=== PATIENT | male | born 1970 ===

== ENCOUNTER 2018-03-17 07:10 | Day surgery (SDC) | payer OTHER ==
[~2018-03-17] VITALS: Ht 157.5 cm; Wt 67.1 kg
[2018-03-17] VITALS (14 sets, daily range): BP systolic 97–124; BP diastolic 64–84
[~2018-03-17 07:10] MED LIST: CALCIUM600 M1 PO; ceFAZolin 1gm in D5W 55ml IVPB ONE; celeBREX 200mg Cap **SURGERY PATIENTS ONLY ORAL ONE; oxyCONTIN 20mg tab ORAL ONE
[2018-03-17] MEDS ORDERED: Lidocaine 1% MPF 10mg/ml 5ml ONE (09:04)
[2018-03-17] MEDS ORDERED: Ropivacaine 5mg/ml Vial 30ml INJ ONE (09:04)
[2018-03-17] MEDS ORDERED: fentaNYL 100 mcg/2 mL IV ONE (09:11)
[2018-03-17] MEDS ORDERED: Midazolam 2mg/2ml Inj ONE (09:11)
[2018-03-17] MEDS ORDERED: Propofol 200mg/20ml IV ONE (09:14)
[2018-03-17] MEDS ORDERED: EPINEPHrine 1mg/1ml Amp ONE (09:49)
[2018-03-17] MEDS ORDERED: Bupivacaine 0.25% Inj 30ml INJ ONE (09:49)
[2018-03-17] MEDS ORDERED: NS Irrig 4000ml IRRIG ONE ×2 (10:00→10:58)
[2018-03-17] MEDS ORDERED: LR 1000ml ONE (10:00)
[2018-03-17] MEDS ORDERED: Glycopyrrolate 0.2mg/ml 1ml Vial ONE (10:42)
[2018-03-17] MEDS ORDERED: Ketorolac 30mg Inj ONE (10:42)
[2018-03-17] MEDS ORDERED: LR 1000ml 1,000 ML IVLG SCH (10:57)
--- NOTE | 2018-03-17 10:57 | Anethesia Preoperative Eval ---
Anesthesia Pre-op PMH/ROS General Date of Evaluation: Mar 17, 2018 Time of Evaluation: 09:52 Anesthesiologist: Lona ASA Score: ASA 2 Mallampati Score Class I : Soft palate, uvula, fauces, pillars visible Class II: Soft palate, uvula, fauces visible Class III: Soft palate, base of uvula visible Class IV: Only hard plate visible Mallampati Classification: Class II Surgeon: Jluis Diagnosis: R shoulder pain Surgical Procedure: R shoulder scope Anesthesia History: none Family History: no anesthesia problems Allergies: Coded Allergies: No Known Allergies (Unverified , 01/03/18) Medications: see eMAR Past Medical History Cardiovascular: Denies: HTN, CAD, ID, valve dz, arrhythmia, other Pulmonary: Denies: asthma, COPD, GER[place], other Gastrointestinal/Genitourinary: Reports: GERD; Denies: CRI, ESRD, other Neurologic/Psychiatric: Denies: dementia, CVA, depression/anxiety, TIA, other Endocrine: Denies: DM, hypothyroidism, steroids, other HEENT: Denies: cataract (L), cataract (R), glaucoma, [place] (L), [place] (R), other Hematology/Immune: Denies: anemia, DVT, bleeding disorder, other Musculoskeletal/Integumentary: Denies: OA, RA, DJD, DDD, edema, other PMH Narrative: as above PSxH Narrative: Bilateral knees scope Anesthesia Pre-op Phys. Exam Physician Exam Last Vital Signs Date Time Temp Pulse Resp B/P (MAP) Pulse Ox O2 Delivery O2 Flow Rate FiO2 03/17/18 07:51 97.3 77 18 112/82 (92) 97 97.3 03/17/18 07:41 Room Air Constitutional: NAD Neurologic: CN 2-12 intact Cardiovascular: RRR, no M/R/G Respiratory: CTA Gastrointestinal: S/NT/ND Airway Exam Mallampati Score: Class II MO: full Neck: flexible ROM: full Teeth: intact Dentures: no upper, no lower Anesthesia Pre-op A/P Labs see chart Studies Pre-op Studies: EKG - NSR Risk Assessment & Plan Assessment: ASA 2 Plan: GA with LMA brachial plexus block for p/op pain control Status Change Before Surgery: No Pre-Antibiotics Drug: Ancef 1gr. Given Within 1 Hr of Incision: Yes Time Given: 10:28 Romeo Wolff MD Mar 17, 2018 10:57
[2018-03-17] MEDS ORDERED: Ketorolac 30mg Inj IV PRN (11:00)
[2018-03-17] MEDS ORDERED: Metoclopramide 10mg/2ml Inj IVP PRN (11:00)
[2018-03-17] MEDS ORDERED: DiphenhydrAMINE 50mg/ml Inj IVP PRN (11:00)
[2018-03-17] MEDS ORDERED: Meperidine 50mg/ml Inj(FOR RIGORS ONLY) IV PRN (11:00)
[2018-03-17] MEDS ORDERED: Midazolam 2mg/2ml Inj IVP PRN (11:00)
--- NOTE | 2018-03-17 11:13 | Operative Note - PDOC ---
Operative Note Operative Note Pre-op Diagnosis: right shoulder impingement, slap tear Procedure: see op report Post-op Diagnosis: same as pre-op plus Operative Findings: consistent w/pre-op dx studies Anesthesia: regional Specimen: none Complications: none Condition: stable Estimated Blood Loss: none Implant(s) used?: No Rafael Bazzi MD Mar 17, 2018 11:13
--- NOTE | 2018-03-17 11:13 | Pre-Procedure Note/Attestation ---
Pre-Procedure Note/Attestation Complete Prior to Procedure Planned Procedure: right Procedure Narrative: shoulder arthroscopy, sad, possible slap repair Indications for Procedure Pre-Operative Diagnosis: right shoulder impingement, slap tear Attestation I attest that I discussed the nature of the procedure; its benefits; risks and complications; and alternatives (and the risks and benefits of such alternatives ), prior to the procedure, with the patient (or the patient's legal cash application representative). I attest that, if there was a reasonable possibility of needing a blood transfusion, the patient (or the patient's legal cash application representative) was given the [facility] standardized written summary, pursuant to the [place] Blood Safety Act ([place] Health and Safety Code # 1645, as amended). I attest that I re-evaluated the patient just prior to the surgery and that there has been no change in the patient's H&P, except as documented below: Rafael Bazzi MD Mar 17, 2018 11:13
[2018-03-17] MEDS ORDERED: Tylenol #3 tab (300mg/30mg) ORAL PRN (11:15)
[2018-03-17] MEDS ORDERED: D5 1/2NS 1,000 ML IV SCH (11:15)
[2018-03-17] MEDS ORDERED: Norco 5mg/325mg tab ORAL PRN (11:15)
[2018-03-17] MEDS ORDERED: HYDROmorphone 1mg/ml Carpuject SUBQ PRN (11:15)
--- NOTE | 2018-03-17 11:28 | Immediate Post-Op Evaluation ---
Immediate Post-Op Evalulation Immediate Post-Op Evalulation Procedure: R shoulder arthroscopy subacromion decompression Date of Evaluation: Mar 17, 2018 Time of Evaluation: 11:27 IV Fluids: 100 Blood Products: none Estimated Blood Loss: min Urinary Output: none Blood Pressure Systolic: 97 Blood Pressure Diastolic: 67 Pulse Rate: 77 Respiratory Rate: 20 O2 Sat by Pulse Oximetry: 99 Temperature (Fahrenheit): 97.7 Pain Score (1-10): 1 Nausea: No Vomiting: No Complications none Patient Status: awake, patent, none Hydration Status: adequate Romeo Wolff MD Mar 17, 2018 11:28
--- NOTE | 2018-03-17 15:30 | 48 Hour Post Anesthesia Eval ---
Post Anesthesia Evaluation Procedure: R shoulder arthroscopy subacromion decompression Date of Evaluation: Mar 17, 2018 Time of Evaluation: 14:16 Blood Pressure Systolic: 116 0: 75 Pulse Rate: 72 Respiratory Rate: 18 Temperature (Fahrenheit): 97.8 O2 Sat by Pulse Oximetry: 99 Airway: patent Nausea: No Vomiting: No Pain Intensity: 1 Hydration Status: adequate Cardiopulmonary Status: stable Mental Status/LOC: patient returned to baseline Follow-up Care/Observations: n/a Post-Anesthesia Complications: none Follow-up care needed: ready to discharge Romeo Wolff MD Mar 17, 2018 15:30
--- NOTE | 2018-03-17 21:30 | Operative Note - Dictated ---
DATE OF OPERATION: 03/17/2018 PREOPERATIVE DIAGNOSES: 1. Right shoulder superior labrum anterior and posterior tear. 2. Right shoulder impingement syndrome. POSTOPERATIVE DIAGNOSES: 1. Right shoulder superior labrum anterior and posterior tear. 2. Grade 1 superior labrum anterior and posterior tear. 3. Right shoulder adhesive capsulitis. 4. Right shoulder impingement syndrome. PROCEDURES: 1. Right shoulder arthroscopy and alexis-capsular release (rotator interval as well as posterior capsule). 2. Right shoulder debridement/repair of superior labral tear. 3. Subacromial decompression bursectomy of the CA ligament. SURGEON: Rafael Bazzi M.D. ANESTHESIA: Interscalene with general. INDICATION FOR PROCEDURE: The patient is a pleasant gentleman, who has had significant right shoulder pain. He was diagnosed with a right shoulder SLAP tear. He still has significant pain and difficulty with overhead activities. He failed conservative treatment and elected to undergo right shoulder arthroscopy, possible SLAP repair with concurrent subacromial decompression bursectomy. Risks, limitations, expectations, and complications of the procedure were discussed in detail. All questions were addressed. DESCRIPTION OF PROCEDURE: After informed consent was obtained, the patient was brought to the operating room and the patient was placed under interscalene general anesthesia. The patient was then carefully placed in the beach chair position. Right shoulder was prepped and draped in a sterile manner. Time-out was performed. Posterolateral stab incision was then made. Trocar was introduced into the glenohumeral joint. There was significant erythema along the rotator interval, biceps tendon, undersurface of the rotator cuff. The superior labrum was overhanging along the superior glenoid. Given the fact that he had so much erythema and shortened rotator interval, benefit from a release of the rotator interval as well as posterior capsule. Anteromedial working portal was established. The superior labrum was further assessed. The patient was noted to have a tear of the superior labrum. This was debrided. Given the fact that he has significant erythema consistent with may be adhesive capsulitis, it was felt that formal repair with a suture anchor was not necessary. There is no gross instability of the anchor. Cameras were then positioned in the anterior portal and a release of the posterior capsule was performed. Once that was done, the camera was placed in the subacromial space. Significant bursal tissue was identified. Lateral working portal was established. The undersurface of the acromion was identified and acromioplasty was started from lateral to medial and completed from posterior to anterior. Complete bursectomy was performed. Once that was done, the instruments were removed. Portal sites were closed with 3-0 Monocryl sutures. Steri-Strips and a sterile dressing were applied. The patient was awoken and taken to recovery room with stable signs. ESTIMATED BLOOD LOSS: None. COMPLICATIONS: None. SPECIMENS: None. IMPLANTS: None. Rafael Bazzi M.D. DR: DEEPAK JOB#: [id number] CC:
== END 2018-03-17 11:30 | disposition home or self-care (01) ==
LOC: SUR 07:10
DX: M75.41 Impingement syndrome of right shoulder (principal); M75.01 Adhesive capsulitis of right shoulder; S43.401A Unspecified sprain of right shoulder joint, initial encounter; X58.XXXA Exposure to other specified factors, initial encounter; Y93.9 Activity, unspecified; Y92.9 Unspecified place or not applicable; K21.9 Gastro-esophageal reflux disease without esophagitis
CPT/HCPCS: 29823; J0690; J1885; J2250; J2405; J2704; J2795; J3010; J3490; J7120; 94003; 94150

== ENCOUNTER 2018-07-01 07:19 | Day surgery (SDC) | payer OTHER ==
[2018-07-01] VITALS (10 sets, daily range): BP systolic 120–134; BP diastolic 70–84
[~2018-07-01] VITALS: Ht 157.5 cm; Wt 67.1 kg
[~2018-07-01 07:19] MED LIST changes: +ceFAZolin 1gm IVPB IVPB ONE; -ceFAZolin 1gm in D5W 55ml IVPB ONE
[2018-07-01] MEDS ORDERED: Norco 5mg/325mg tab ORAL PRN ×2 (07:30→11:53)
[2018-07-01] MEDS ORDERED: Tylenol #3 tab (300mg/30mg) ORAL PRN ×2 (07:30→09:00)
[2018-07-01] MEDS ORDERED: D5 1/2NS 1,000 ML IV SCH ×2 (07:30→09:00)
[2018-07-01] MEDS ORDERED: HYDROmorphone 1mg/ml Carpuject SUBQ PRN ×2 (07:30→09:00)
--- NOTE | 2018-07-01 07:30 | Pre-Procedure Note/Attestation ---
Pre-Procedure Note/Attestation Complete Prior to Procedure Planned Procedure: left Procedure Narrative: shoulder arthroscopy, sad, possible slap repair Indications for Procedure Pre-Operative Diagnosis: left shoulder slap tear, impingement Attestation I attest that I discussed the nature of the procedure; its benefits; risks and complications; and alternatives (and the risks and benefits of such alternatives ), prior to the procedure, with the patient (or the patient's legal client services representative). I attest that, if there was a reasonable possibility of needing a blood transfusion, the patient (or the patient's legal client services representative) was given the [facility] standardized written summary, pursuant to the [place] Blood Safety Act ([place] Health and Safety Code # 1645, as amended). I attest that I re-evaluated the patient just prior to the surgery and that there has been no change in the patient's H&P, except as documented below: Rafael Bazzi MD Jul 01, 2018 07:30
--- NOTE | 2018-07-01 07:30 | Operative Note - PDOC ---
Operative Note Operative Note Pre-op Diagnosis: left shoulder slap tear, impingement Procedure: see op report Post-op Diagnosis: same as pre-op plus Operative Findings: consistent w/pre-op dx studies Anesthesia: general Specimen: none Complications: none Condition: stable Estimated Blood Loss: none Implant(s) used?: No Rafael Bazzi MD Jul 01, 2018 07:30
[2018-07-01] MEDS ORDERED: ZINC50 M2 ORAL (08:15)
[2018-07-01] MEDS ORDERED: NORCO 10-325 T1 EACH ORAL (08:15)
[2018-07-01] MEDS ORDERED: oxyCONTIN 20mg tab ORAL ONE (08:31)
[2018-07-01] MEDS ORDERED: celeBREX 200mg Cap **SURGERY PATIENTS ONLY ORAL ONE (08:31)
[2018-07-01] MEDS ORDERED: Kenalog-40 1ml Vial ONE ×2 (09:12→10:13)
[2018-07-01] MEDS ORDERED: EPINEPHrine 1mg/1ml Amp ONE (09:12)
[2018-07-01] MEDS ORDERED: Bupivacaine 0.5% Inj 30 ml vial INJ ONE (09:13)
[2018-07-01] MEDS ORDERED: Bupivacaine w/Epi 0.25% 30ml Vial INJ ONE ×2 (09:13→09:20)
[2018-07-01] MEDS ORDERED: Zemuron 50mg/5ml Inj IV ONE (09:21)
[2018-07-01] MEDS ORDERED: Midazolam 2mg/2ml Inj ONE (09:25)
[2018-07-01] MEDS ORDERED: NS Irrig 4000ml IRRIG ONE (09:30)
[2018-07-01] MEDS ORDERED: LR 1000ml ONE (09:30)
[2018-07-01] MEDS ORDERED: Acetaminophen (Non formulary) 100 ML IV ONE (09:30)
[2018-07-01] MEDS ORDERED: Sterile Water For Irrig 2000ml IRRIG ONE (09:30)
[2018-07-01] MEDS ORDERED: fentaNYL 100 mcg/2 mL IV ONE (09:40)
[2018-07-01] MEDS ORDERED: Propofol 200mg/20ml IV ONE (10:11)
[2018-07-01] MEDS ORDERED: Neostigmine 1mg/ml 10ml Inj ONE (10:11)
[2018-07-01] MEDS ORDERED: Glycopyrrolate 0.2mg/ml 1ml Vial ONE (10:11)
[2018-07-01] MEDS ORDERED: Lidocaine 1% MPF 10mg/ml 5ml ONE (10:11)
[2018-07-01] MEDS ORDERED: Metoclopramide 10mg/2ml Inj ONE (10:11)
[2018-07-01] MEDS ORDERED: Ropivacaine 5mg/ml Vial 30ml INJ ONE (10:11)
--- NOTE | 2018-07-01 10:46 | Immediate Post-Op Evaluation ---
Immediate Post-Op Evalulation Immediate Post-Op Evalulation Procedure: left shoulder arthroscopy; right shoulder manipulation Date of Evaluation: Jul 01, 2018 Time of Evaluation: 10:45 IV Fluids: 600 Blood Pressure Systolic: 134 Blood Pressure Diastolic: 76 Pulse Rate: 68 Respiratory Rate: 14 O2 Sat by Pulse Oximetry: 99 Temperature (Fahrenheit): 97.5 Pain Score (1-10): 0 Nausea: No Vomiting: No Patient Status: awake, reacts, patent Hydration Status: adequate Drug: ancef Given Within 1 Hr of Incision: Yes - 1000 Time Given: 10:00 Magnolia Monson CRNA Jul 01, 2018 10:46
--- NOTE | 2018-07-01 10:48 | Anethesia Preoperative Eval ---
Anesthesia Pre-op PMH/ROS General Date of Evaluation: Jul 01, 2018 Time of Evaluation: 10:00 Anesthesiologist: ted ASA Score: ASA 2 Mallampati Score Class I : Soft palate, uvula, fauces, pillars visible Class II: Soft palate, uvula, fauces visible Class III: Soft palate, base of uvula visible Class IV: Only hard plate visible Mallampati Classification: Class II Surgeon: rafael Diagnosis: shoulder impingment Surgical Procedure: shoulder arthroscopy Anesthesia History: PONV Family History: no anesthesia problems Allergies: Coded Allergies: No Known Allergies (Unverified , 07/01/18) Medications: see eMAR Patient NPO?: Yes NPO Date: Jun 30, 2018 NPO Time: 23:59 Past Medical History Cardiovascular: Reports: HTN Pulmonary: Denies: asthma, COPD, [place]ER[place], other Gastrointestinal/Genitourinary: Denies: GERD, CRI, ESRD, other Neurologic/Psychiatric: Denies: dementia, CVA, depression/anxiety, TIA, other Endocrine: Denies: DM, hypothyroidism, steroids, other HEENT: Denies: cataract (L), cataract (R), glaucoma, [place] (L), [place] (R), other Hematology/Immune: Denies: anemia, DVT, bleeding disorder, other Musculoskeletal/Integumentary: Reports: OA; Denies: RA, DJD, DDD, edema, other PSxH Narrative: shoulder and knee surgery Anesthesia Pre-op Phys. Exam Physician Exam Last Vital Signs Date Time Temp Pulse Resp B/P (MAP) Pulse Ox O2 Delivery O2 Flow Rate FiO2 07/01/18 08:12 Room Air 07/01/18 08:00 97.7 86 16 125/83 98 Constitutional: NAD Neurologic: CN 2-12 intact Cardiovascular: RRR Respiratory: CTA Gastrointestinal: S/NT/ND Airway Exam Mallampati Classification 3 Mallampati Score: Class II Neck: thick TMD: 1fb Teeth: broken - chipped front incisor Dentures: no upper, no lower Anesthesia Pre-op A/P Studies Pre-op Studies: EKG - sr Risk Assessment & Plan Assessment: denies changes in health Plan: general; peripheral block Status Change Before Surgery: No Pre-Antibiotics Drug: ancef Given Within 1 Hr of Incision: Yes Time Given: 10:00 Magnolia Monson CRNA Jul 01, 2018 10:47
--- NOTE | 2018-07-01 13:19 | 48 Hour Post Anesthesia Eval ---
Post Anesthesia Evaluation Procedure: left shoulder arthroscopy; right shoulder manipulation Date of Evaluation: Jul 01, 2018 Time of Evaluation: 13:19 Blood Pressure Systolic: 133 0: 70 Pulse Rate: 71 Respiratory Rate: 14 O2 Sat by Pulse Oximetry: 98 Airway: patent Nausea: No Vomiting: No Pain Intensity: 5 Hydration Status: adequate Cardiopulmonary Status: stable Mental Status/LOC: patient returned to baseline Follow-up Care/Observations: na Post-Anesthesia Complications: none Follow-up care needed: N/A Magnolia Monson CRNA Jul 01, 2018 13:19
--- NOTE | 2018-07-01 20:02 | Operative Note - Dictated ---
DATE OF OPERATION: 07/01/2018 PREOPERATIVE DIAGNOSES: 1. Left shoulder impingement syndrome. 2. Left shoulder posterior labral tear. 3. Left shoulder GIRD. 4. Right shoulder adhesive capsulitis. POSTOPERATIVE DIAGNOSES: 1. Left shoulder impingement syndrome. 2. Left shoulder posterior labral tear. 3. Left shoulder GIRD. PROCEDURE: 1. Left shoulder diagnostic arthroscopy. 2. Left shoulder subacromial decompression and bursectomy. 3. Manipulation under anesthesia. 4. Intra-articular cortisone injection of the right shoulder. SURGEON: Rafael Bazzi M.D. ANESTHESIA: Interscalene with general. INDICATION FOR PROCEDURE: The patient is a pleasant gentleman who has had significant injury to both his shoulders. He subsequently had right shoulder arthroscopy recently, had still some residual adhesive capsulitis, and elected to undergo manipulation under anesthesia as well as an intra-articular cortisone injection to the right shoulder. Additionally, because that he failed conservative treatment to the left shoulder, he elected to undergo left shoulder diagnostic arthroscopy, evaluation of posterior labral tear with concurrent subacromial decompression and bursectomy. The patient was also noted to have internal rotation deficit of the left shoulder. Risks, limitations, expectations, and complications of the procedure were discussed in detail. All questions were addressed. DESCRIPTION OF PROCEDURE: After informed consent was obtained, the patient was brought to the operating room. The patient was placed under general anesthesia. The patient was then carefully placed in beach-chair position. At this point, manipulation under anesthesia was first performed of the right shoulder. Shoulder was flexed to 180 degrees with audible breaking up of the scar tissue. The shoulder was abducted to 90, external rotation was 80, internal rotation with gentle manipulation ultimately was 90 degrees. Once the manipulation under anesthesia was completed, intra-articular cortisone injection containing mL of Marcaine was injected to the right shoulder. The patient tolerated the injection without complications. At this point, the left shoulder was prepped and draped in sterile manner. Time-out was performed. Ancef was already administered prior to manipulation under anesthesia of the right shoulder. At this point, the shoulder was abducted. Gentle manipulation under anesthesia was performed to address internal rotation deficit. The patient flexed to 170 degrees, abduction was 150. With shoulder abducted, external rotation was 80 and internal rotation with gentle manipulation increased 80 degrees. At this point, the camera was placed in the glenohumeral joint. Systematic tour of the shoulder was performed. The posterior labrum was evaluated for detachment. There was no gross detachment that required formal fixation. The biceps tendon appeared to be intact. There was no chondral damage. The anterior labrum was intact along with subscap and the articular portion of the rotator cuff. At this point, the camera was placed and repositioned in the subacromial space. The undersurface of the acromion was identified. Acromioplasty was started from lateral to medial and completed from posterior to anterior. Complete bursectomy was completed to better visualize the bursal side of the supraspinatus and infraspinatus tendon. Once that was done and no obvious tear was identified, the instruments were removed. Portal sites were closed with 3-0 Monocryl sutures. Subacromial injection containing 0.25% Marcaine with epinephrine and 40 mg of Kenalog was injected. Rafael Bazzi M.D. DR: Zoë JOB#: [id number] CC:
== END 2018-07-01 12:30 | disposition home or self-care (01) ==
LOC: SUR 07:19
DX: M25.812 Other specified joint disorders, left shoulder (principal); S43.402A Unspecified sprain of left shoulder joint, initial encounter; M75.01 Adhesive capsulitis of right shoulder; X58.XXXA Exposure to other specified factors, initial encounter; I10 Essential (primary) hypertension
CPT/HCPCS: 23700; 29822; 96372; J0171; J0690; J2250; J2405; J2704; J2710; J2765; J2795; J3010; J3301; J3490; 94003; 94150